=== PATIENT | male | born 1960 | race Caucasian/White ===

== ENCOUNTER 2017-12-14 11:45 | Emergency (ER) | END 2017-12-14 15:21 | disposition home or self-care (01) ==

== ENCOUNTER 2017-12-17 06:58 | Emergency (ER) | END 2017-12-17 07:46 | disposition home or self-care (01) ==

== ENCOUNTER 2017-12-21 14:45 | Emergency (ER) | END 2017-12-21 15:27 | disposition home or self-care (01) ==